=== PATIENT | female | born 1995 | race African-American/Black ===

== ENCOUNTER 2017-04-21 20:43 | Emergency (ER) | payer MEDICAID ==
[~2017-04-21] VITALS: Ht 149.9 cm; Wt 81.6 kg
[2017-04-21 21:02] VITALS: BP 126/75
[2017-04-22] MEDS ORDERED: diphenhydrAMINE 50 MG CAP PO ONE (00:10)
[2017-04-22 00:35] VITALS: BP 131/73
== END 2017-04-22 00:35 | disposition home or self-care (01) ==
LOC: MED 20:43
DX: J30.2 Other seasonal allergic rhinitis (principal); X58.XXXA Exposure to other specified factors, initial encounter
CPT/HCPCS: 81025; 99283; Q0163

== ENCOUNTER 2017-11-06 23:24 | Emergency (ER) | payer MEDICAID ==
[~2017-11-06] VITALS: Ht 149.9 cm; Wt 77.1 kg
[2017-11-06 23:29] VITALS: BP 134/70
--- NOTE | 2017-11-06 23:34 | NUR ---
TO ANGE,A/W BED, MEDICATED PER PROTOCOL TOLERATED WELL.ERMD NOTED
[2017-11-06] MEDS ORDERED: ACETAMINOPHEN EXTRA STRENGTH 500 MG TAB ONE (23:35)
--- NOTE | 2017-11-07 00:32 | NUR ---
PT TAKEN TO OF4
--- NOTE | 2017-11-07 00:37 | NUR ---
PATIENT PRESENTS TO ED WITH FEVER,VOMITING, SORETHROAT, BODYACHES, H/A STARTED TODAY. ; SKIN IS PINK/WARM/DRY; AAOX4 WITH EVEN AND STEADY GAIT; LUNGS CLEAR BL; HR EVEN AND REGULAR; PT DENIES ANY CP, SOB, OR COUGH AT THIS TIME; PATIENT STATES PAIN OF 6/10 AT THIS TIME; VSS; PATIENT POSITIONED FOR COMFORT; HOB ELEVATED; BEDRAILS UP X2; BED DOWN. ER MD MADE AWARE OF PT STATUS.
[2017-11-07] MEDS ORDERED: ACETAMINOPHEN EXTRA STRENGTH 500 MG TAB PO ONE (00:55)
[2017-11-07 02:15] VITALS: BP 127/68
--- NOTE | 2017-11-07 02:15 | NUR ---
Patient discharged with v/s stable. Written and verbal after care instructions given and explained. Patient alert, oriented and verbalized understanding of instructions. Ambulatory with steady gait. All questions addressed prior to discharge. ID band removed. Patient advised to follow up with PMD. Rx of IBUPROFEN 600MG, ROBITUSSIM DM, MUCINEX 600MG given. Patient educated on indication of medication including possible reaction and side effects. Opportunity to ask questions provided and answered.
== END 2017-11-07 02:15 | disposition home or self-care (01) ==
LOC: MED 23:24
DX: B34.9 Viral infection, unspecified (principal); J06.9 Acute upper respiratory infection, unspecified
CPT/HCPCS: 36415; 87804; 99284

== ENCOUNTER 2019-05-31 01:37 | Emergency (ER) | payer MEDICAID ==
[~2019-05-31] VITALS: Ht 149.9 cm; Wt 82.7 kg
[2019-05-31 01:50] VITALS: BP 124/73
--- NOTE | 2019-05-31 02:00 | NUR ---
PT AMBULATED TO WITH STEADY GAIT. URINE CUP PROVIDED. WILL GO TO BED 1 WHEN FINISHED.
--- NOTE | 2019-05-31 02:07 | NUR ---
PT CAME TO ER C/O VAGINAL RASH X5 DAYS. PAIN LEVEL 8/10, BURNING AND IRRITATED WHEN WALKING. PER PT RASH SLIGHTLY BLEEDS WHEN WIPING. PT HAS VAGINAL DISCHARGE, THICK, AND YELLOW/GREEN. PT ALSO C/O OF BURNING UPON URINATION X 5 DAYS. PT ALSO HAS CYST LIKE BUMP BETWEEN BUTTOCKS. SAFETY MEASURES IN PLACE. ERMD AT BEDSIDE.
--- NOTE | 2019-05-31 02:10 | NUR ---
PT CAME TO ER C/O VAGINAL RASH X5 DAYS. PAIN LEVEL 8/10, BURNING AND IRRITATED WHEN WALKING. PER PT RASH SLIGHTLY BLEEDS WHEN WIPING. PT HAS VAGINAL DISCHARGE, THICK, AND YELLOW/GREEN. PT ALSO C/O OF BURNING UPON URINATION X 5 DAYS. PT ALSO HAS CYST LIKE BUMP BETWEEN BUTTOCKS THAT HAS BEEN THERE FOR 1 YEAR AND SAYS IT WONT GO AWAY. SAFETY MEASURES IN PLACE. ERMD AT BEDSIDE.
--- NOTE | 2019-05-31 02:25 | NUR ---
ERMD AT BEDSIDE FOR PELVIC EXAM. PT TOLERATED PROCEDURE WELL.
[2019-05-31 03:10] VITALS: BP 124/73
--- NOTE | 2019-05-31 03:13 | NUR ---
Patient discharged BY DR. PARISI with v/s stable. Written and verbal after care instructions given and explained. Patient alert, oriented and verbalized understanding of instructions. Ambulatory with steady gait. All questions addressed prior to discharge. ID band removed. Patient advised to follow up with PMD. Rx of DOXYCYCLINE WAS given. Patient educated on indication of medication including possible reaction and side effects. Opportunity to ask questions provided and answered.
== END 2019-05-31 03:13 | disposition home or self-care (01) ==
LOC: MED 01:37
DX: N76.0 Acute vaginitis (principal); L02.32 Furuncle of buttock
CPT/HCPCS: 36415; 87210; 99283

== ENCOUNTER 2019-11-23 08:51 | Emergency (ER) | payer MEDICAID ==
[~2019-11-23] VITALS: Ht 149.9 cm; Wt 77.1 kg
[2019-11-23 09:09] VITALS: BP 145/93
--- NOTE | 2019-11-23 09:13 | NUR ---
PT AMBULATED TO ER BED 02
--- NOTE | 2019-11-23 09:46 | NUR ---
24 YO F BIB PARTNER C/O GENERALIZED BODY ACHE AND FLU-LIKE SYMPTOMS X 2 DAYS. +CONGESTION +THROAT PAIN +NON-PRODUCTIVE COUGH, -FEVER, -VOMITING. PATIENT STATES BODY PAIN OF 5/10 AT THIS TIME. NO MEDICATIONS TAKEN. VSS; PATIENT POSITIONED FOR COMFORT; HOB ELEVATED; BEDRAILS UP X2; BED DOWN. ER MD MADE AWARE OF PT STATUS. NO PMH NO MEDS TAKEN NKA
[2019-11-23] MEDS ORDERED: KETOROLAC 60 MG/2 ML VIAL IM ONE (09:50)
[2019-11-23 11:18] VITALS: BP 145/93
--- NOTE | 2019-11-23 11:19 | NUR ---
Patient discharged with v/s stable. Written and verbal after care instructions given and explained. Patient alert, oriented and verbalized understanding of instructions. Ambulatory with steady gait. All questions addressed prior to discharge. ID band removed. Patient advised to follow up with PMD. Rx of MOTRIN, PREDNISONE given. Patient educated on indication of medication including possible reaction and side effects. Opportunity to ask questions provided and answered.
== END 2019-11-23 11:19 | disposition home or self-care (01) ==
LOC: MED 08:51
DX: J11.1 Influenza due to unidentified influenza virus with other respiratory manifestations (principal)
CPT/HCPCS: 81002; 81025; 99283; J1885

== ENCOUNTER 2022-01-28 19:54 | Emergency (ER) | payer MEDICAID ==
[~2022-01-28] VITALS: Ht 149.9 cm; Wt 72.6 kg
[2022-01-28 20:06] VITALS: BP 127/77
--- NOTE | 2022-01-28 20:12 | NUR ---
TO LOBBY FOLLOWING TRIAGE
[2022-01-28] MEDS ORDERED: AMOX1TAB8 PO (21:40)
[2022-01-28 21:41] VITALS: BP 127/77
--- NOTE | 2022-01-28 21:41 | NUR ---
Patient discharged with v/s stable by JESSICA Iraheta. Written and verbal after care instructions given and explained. Patient advised to follow up with PMD. Rx of Amoxicillin/Pottasium Clav given. Opportunity to ask questions provided and answered.
--- NOTE | 2022-01-28 21:41 | NUR ---
seen by JESSICA no nursing interventions needed for patient
== END 2022-01-28 21:41 | disposition home or self-care (01) ==
LOC: MED 19:54
DX: J02.0 Streptococcal pharyngitis (principal); Z79.899 Other long term (current) drug therapy
CPT/HCPCS: 99283

== ENCOUNTER 2022-02-06 03:13 | Emergency (ER) | payer MEDICAID ==
[~2022-02-06] VITALS: Ht 149.9 cm; Wt 72.6 kg
[~2022-02-06 03:13] MED LIST: AMOX1TAB8 PO
[2022-02-06 03:15] VITALS: BP 132/79
--- NOTE | 2022-02-06 03:15 | NUR ---
TO BED AMBULATORY
--- NOTE | 2022-02-06 03:35 | NUR ---
27 Y/O F BIB SELF FOR VAGINAL PAIN X2 DAYS . PT STATES SHE HAD SEX WITH NO CONDOM AND SHE HAD PAIN IN THE VAGINAL ARE. SHE THEN GOT HER PERIOS AND PAIN WENT AWAY. ABOUT 2 DAYS AFTER PERIOD STOPPED PAIN RETURNED. PT TRIED MONISTAT CREAM TO STOP THE ITCHING BUT FOUND NO RELIEF. PT ALSO STATES SHE HAS HEARTBURN.PATIENT STATES PAIN OF 8/10 AT THIS TIME; DENIES N/V/D; SKIN IS PINK/WARM/DRY; AAOX4 WITH EVEN AND STEADY GAIT; LUNGS CLEAR BL; HR EVEN AND REGULAR; PT DENIES ANY FEVER, CP, SOB, OR COUGH AT THIS TIME; VSS; PATIENT POSITIONED FOR COMFORT; HOB ELEVATED; BEDRAILS UP X2; BED DOWN. ER MD MADE AWARE OF PT STATUS. PMH: NONE RX: NONE ALLERGIES: NONE
[2022-02-06] MEDS ORDERED: DICYCLOMINE HCL LIQUID 20 MG, ALUMINUM HYD/MAG/SIMETHICONE 30 ML, LIDOCAINE VISCOUS 2% ... PO ONE ×3 (04:20)
[2022-02-06] MEDS ORDERED: DOXYCYCLINE 100 MG CAP PO ONE (04:20)
[2022-02-06] MEDS ORDERED: cefTRIAXone 500 MG in LIDOCAINE MPF 1% 1 ML IM ONE (04:20)
[2022-02-06] MEDS ORDERED: ALUMINUM HYD/MAG/SIMETHICONE 30 ML UDC ONE (04:21)
[2022-02-06] MEDS ORDERED: DICYCLOMINE HCL LIQUID 10 MG/5 ML UDC ONE (04:21)
[2022-02-06] MEDS ORDERED: cefTRIAXone 500 MG VIAL ONE (04:28)
[2022-02-06] MEDS ORDERED: LIDOCAINE MPF 1% 0 ML ONE (04:29)
--- NOTE | 2022-02-06 04:30 | NUR ---
PT REFUSED MED. PT DOES NOT WANT ANY NEEEDLES. MADE JESSICA BURROWS
--- NOTE | 2022-02-06 04:42 | NUR ---
WALKED WET MOUNT TO LAB
[2022-02-06] MEDS ORDERED: METR-435 PO (05:25)
[2022-02-06] MEDS ORDERED: CEFI400C PO (05:25)
[2022-02-06] MEDS ORDERED: DOXY-690 PO (05:25)
[2022-02-06 05:40] VITALS: BP 116/73
--- NOTE | 2022-02-06 05:40 | NUR ---
Patient discharged with v/s stable. Written and verbal after care instructions given and explained. Patient alert, oriented and verbalized understanding of instructions. Ambulatory with steady gait. All questions addressed prior to discharge. ID band removed. Patient advised to follow up with PMD. Rx of SUPRAX, VIBRAMYCIN,METRONIDAZOLE given. . Opportunity to ask questions provided and answered.
--- NOTE | 2022-02-06 06:02 | NUR ---
The patient's care was reviewed and supervised by Judi Montiel RN.
== END 2022-02-06 05:40 | disposition home or self-care (01) ==
LOC: MED 03:13
DX: N76.0 Acute vaginitis (principal); B96.89 Other specified bacterial agents as the cause of diseases classified elsewhere; F12.90 Cannabis use, unspecified, uncomplicated; Z79.899 Other long term (current) drug therapy
CPT/HCPCS: 36415; 81002; 81025; 87210; 87491; 99285; J0696; J2001

== ENCOUNTER 2022-05-24 22:22 | Emergency (ER) | payer MEDICAID ==
[~2022-05-24] VITALS: Ht 149.9 cm; Wt 75.7 kg
[~2022-05-24 22:22] MED LIST changes: +CEFI400C PO; +DOXY-690 PO; +METR-435 PO
[2022-05-24 22:44] VITALS: BP 138/98
--- NOTE | 2022-05-24 23:08 | NUR ---
PT TAKEN TO BED 7
--- NOTE | 2022-05-24 23:21 | NUR ---
26/F BIB SELF C/O OF POSSIBLE . PT WANTS CONFIRMATION AND VAGINAL EXAM FOR POSSIBLE YEAST INFECTION. PATIENT HAS TAKEN HOME EXAMS WITH + RESULTS. PATIENT PLACED IN GOWN. BED LOW AND LOCKED. SIDE RAILS UP FOR SAFETY. ALL NEEDS MET. LMP 625 PMHX DM MEDS METFORMIN NKA
--- NOTE | 2022-05-25 | NUR ---
Dr. Kaba examining patient.
[2022-05-25] MEDS ORDERED: OMEP40EC24 PO (00:11)
[2022-05-25] MEDS ORDERED: CIPR500T4 PO (00:11)
[2022-05-25] MEDS ORDERED: IBUP-2213 PO (00:11)
[2022-05-25] MEDS ORDERED: FLUC150T PO (00:11)
[2022-05-25 00:25] VITALS: BP 138/98
--- NOTE | 2022-05-25 00:25 | NUR ---
Patient discharged with v/s stable. Written and verbal after care instructions given and explained. Patient alert, oriented and verbalized understanding of instructions. Ambulatory with steady gait. All questions addressed prior to discharge. ID band removed. Patient advised to follow up with PMD. Rx of CIPROFLOXACIN, FLUCONAZOLE, IBUPROFEN, AND OMEPRAZOLE given.
== END 2022-05-25 00:25 | disposition home or self-care (01) ==
LOC: MED 22:22
DX: N39.0 Urinary tract infection, site not specified (principal); F12.90 Cannabis use, unspecified, uncomplicated; Z79.899 Other long term (current) drug therapy
CPT/HCPCS: 81002; 81025; 99282; 99283

== ENCOUNTER 2022-11-04 23:45 | Emergency (ER) | payer MEDICAID ==
[~2022-11-04] VITALS: Ht 149.9 cm; Wt 77.1 kg
[~2022-11-04 23:45] MED LIST changes: +CIPR500T4 PO; +FLUC150T PO; +IBUP-2213 PO; +OMEP40EC24 PO
[2022-11-04 23:50] VITALS: BP 116/81
--- NOTE | 2022-11-04 23:53 | NUR ---
TO LOBBY A/W BED AMBULATORY
--- NOTE | 2022-11-05 01:18 | NUR ---
Patient being evaluated by physician
[2022-11-05 01:35] LABS: APPEARANCE,URINE CLEAR (CLEAR); BILIRUBIN,URINE NEGATIVE (NEGATIVE); BLOOD, URINE TRACE-I (NEGATIVE); COLOR,URINE YELLOW (YELLOW); LEUKOCYTE ESTERASE ,URINE NEGATIVE (NEGATIVE); NITRITE, URINE NEGATIVE (NEGATIVE); UGLUCOSE NEGATIVE (NEGATIVE)
[2022-11-05 01:50] LABS: RBC,URINE 0-5 /HPF (0-5); WBC,URINE 0-5 /HPF (0-5)
[2022-11-05 02:24] VITALS: BP 116/81
--- NOTE | 2022-11-05 02:24 | NUR ---
Patient discharged with v/s stable. Written and verbal after care instructions given and explained. Patient verbalized understanding. Ambulatory with steady gait. All questions addressed prior to discharge. Advised to follow up with PMD.
== END 2022-11-05 02:24 | disposition home or self-care (01) ==
LOC: MED 23:45
DX: N93.8 Other specified abnormal uterine and vaginal bleeding (principal)
CPT/HCPCS: 81001; 81025; 87110; 87210; 87299; 99283; 99285

== ENCOUNTER 2023-05-25 04:05 | Emergency (ER) | payer MEDICAID ==
[~2023-05-25] VITALS: Ht 152.4 cm; Wt 81.6 kg
[2023-05-25 04:14] VITALS: BP 131/77; PULSE 87; RESP 17; TEMP 97.8; O2SAT 100
--- NOTE | 2023-05-25 04:14 | NUR ---
TO BED AMBULATORY
--- NOTE | 2023-05-25 04:41 | NUR ---
FIRST CONTACT WITH PT. ASSESSMENT COMPLETED. MD ALSO AT BEDSIDE FOR EVAL AND ORDERS.
--- NOTE | 2023-05-25 04:42 | NUR ---
Patient being evaluated by physician at bedside.
--- NOTE | 2023-05-25 04:50 | NUR ---
Note butch in EDM - 05/25/23 at 0512 by [email or web address] Patient discharged with v/s stable. Written and verbal after care instructions given and explained. Patient alert, oriented and verbalized understanding of instructions. Ambulatory with steady gait. All questions addressed prior to discharge. ID band removed. Patient advised to follow up with PMD. Rx of Tylenol given. Patient educated on indication of medication including possible reaction and side effects. Opportunity to ask questions provided and answered.
[2023-05-25 05:07] LABS: BASOPHILS % (AUTO) 0.5 % (0.0-2.0); EOSINOPHILS # (AUTO) 0.1 K/uL (0-0.4); EOSINOPHILS % (AUTO) 1.4 % (0.0-4.0); HEMATOCRIT 30.8 % (36-48); HEMOGLOBIN 10.2 g/dL (12.0-16.0); LYMPHOCYTES # (AUTO) 2.8 K/uL (2.5-16.5); LYMPHOCYTES % (AUTO) 34.3 % (20.5-51.1); MEAN CORPUSCULAR HEMOGLOBIN 28 pg (27-31); MEAN CORPUSCULAR HGB CONC 33 g/dL (33-37); MEAN CORPUSCULAR VOLUME 83.2 fL (80-94); MONOCYTES # (AUTO) 0.9 K/uL (0.8-1.0); MONOCYTES % (AUTO) 10.6 % (1.7-9.3); NEUTROPHILS # (AUTO) 4.4 K/uL (1.8-7.7); NEUTROPHILS % (AUTO) 53.2 % (42.2-75.2); PLATELET COUNT (AUTO) 382 K/uL (140-450); RED CELL DISTRIBUTION WIDTH 15.8 % (11.6-13.7); WHITE BLOOD COUNT (AUTO) 8.2 K/uL (4.8-10.8)
[2023-05-25 06:15] LABS: ALBUMIN 3.1 g/dL (3.4-5.0); CARBON DIOXIDE 25.6 mmol/L (21-32); CREATININE 0.7 mg/dL (0.6-1.3); POTASSIUM 3.6 mmol/L (3.5-5.1); TOTAL BILIRUBIN 0.1 mg/dL (0.0-1.0)
--- NOTE | 2023-05-25 06:50 | NUR ---
MD AT BEDSIDE TO DISCUSS FINDINGS AND DISCHARGE PLANS.
[2023-05-25 06:51] VITALS: BP 126/78; PULSE 82; RESP 16; TEMP 98.3; O2SAT 98
== END 2023-05-25 07:15 | disposition home or self-care (01) ==
LOC: MED 04:05
DX: O26.891 Other specified pregnancy related conditions, first trimester (principal); R10.9 Unspecified abdominal pain; Z3A.01 Less than 8 weeks gestation of pregnancy; Z79.899 Other long term (current) drug therapy
CPT/HCPCS: 36415; 76815; 80053; 81025; 83690; 84702; 85025; 99284

== ENCOUNTER 2024-08-25 16:23 | Emergency (ER) | payer MEDICAID, OTHER ==
[~2024-08-25] VITALS: Ht 151.1 cm; Wt 80.8 kg
[2024-08-25 16:30] VITALS: BP 163/103; PULSE 80; RESP 18; TEMP 97.9; O2SAT 100
[2024-08-25] MEDS ORDERED: CYCL-711 PO (17:36)
[2024-08-25] MEDS ORDERED: IBUP-2213 PO (17:36)
== END 2024-08-25 17:43 | disposition home or self-care (01) ==
LOC: MED 16:23
DX: S16.1XXA Strain of muscle, fascia and tendon at neck level, initial encounter (principal); S39.012A Strain of muscle, fascia and tendon of lower back, initial encounter; E11.9 Type 2 diabetes mellitus without complications; Z79.899 Other long term (current) drug therapy; V49.9XXA Car occupant (driver) (passenger) injured in unspecified traffic accident, initial encounter; Y93.89 Activity, other specified; Y92.89 Other specified places as the place of occurrence of the external cause; Y99.8 Other external cause status
CPT/HCPCS: 99283